=== PATIENT | male | born 1950 | race Caucasian/White ===

== ENCOUNTER → 2017-03-23 | Outpatient (CLI) | payer OTHER | LOC: OD 08:12 | PROVIDERS: ATTEND Internal Medicine | DX: Z53.9 Procedure and treatment not carried out, unspecified reason (principal) ==

== ENCOUNTER → 2017-03-27 | Outpatient (CLI) | payer OTHER ==
[2017-03-27 08:21] LABS: ABSOLUTE BASOPHILS # (AUTO) 0.1 10^3/uL (0.0-0.2); ABSOLUTE EOSINOPHILS # (AUTO) 0.2 10^3/uL (0.0-0.6); ABSOLUTE LYMPHOCYTES (AUTO) 1.8 10^3/uL (0.5-4.7); ABSOLUTE MONOCYTES (AUTO) 0.6 10^3/uL (0.1-1.4); ABSOLUTE NEUT (AUTO) 3.1 10^3/uL (1.7-8.2); BASOPHILS % (AUTO) 1.4 % (0-2); EOSINOPHILS % (AUTO) 3.7 % (0-6); HEMATOCRIT 45.9 % (37.9-51.0); HEMOGLOBIN 15.1 g/dL (13.5-17.0); HGB HCT DIFFERENCE -0.6; MEAN CORPUSCULAR HEMOGLOBIN 30.2 pg (27.0-33.4); MEAN CORPUSCULAR VOLUME 92 fl (80-97); MONOCYTES % (AUTO) 9.8 % (3-13); SEGMENTED NEUTROPHILS % (AUTO) 53.1 % (42-78); WHITE BLOOD COUNT 5.8 10^3/uL (4.0-10.5)
[2017-03-27 08:49] LABS: ALANINE AMINOTRANSFERASE 29 U/L (21-72); ALKALINE PHOSPHATASE 43 U/L (38-126); ANION GAP 11 (5-19); ASPARTATE AMINO TRANSFERASE 27 U/L (17-59); BILIRUBIN,DIRECT 0.2 mg/dL (0.0-0.4); BILIRUBIN,TOTAL 0.8 mg/dL (0.2-1.3); BLOOD UREA NITROGEN 16 mg/dL (7-20); CALCIUM 8.9 mg/dL (8.4-10.2); CARBON DIOXIDE 24 mmol/L (22-30); CHLORIDE 105 mmol/L (98-107); CHOLESTEROL 185.62 mg/dL (0-200); CREATININE RESULT 0.99 mg/dL (0.52-1.25); Direct HDL 42 mg/dL (>40); GLUCOSE 94 mg/dL (75-110); POTASSIUM 4.6 mmol/L (3.6-5.0); SODIUM 140.2 mmol/L (137-145); TOTAL PROTEIN 6.5 g/dL (6.3-8.2); TRIGLYCERIDES 98 mg/dL (<150)
[2017-03-27 09:01] LABS: DIRECT LDL 117 mg/dL (<100)
== END ==
LOC: OD 07:45
PROVIDERS: ATTEND Internal Medicine
DX: Z00.00 Encounter for general adult medical examination without abnormal findings (principal); E78.5 Hyperlipidemia, unspecified; N40.0 Benign prostatic hyperplasia without lower urinary tract symptoms; R35.1 Nocturia
CPT/HCPCS: 36415; 80053; 80061; 84153; 84443; 85025

== ENCOUNTER → 2017-11-27 | Outpatient (CLI) | payer OTHER ==
--- NOTE | 2017-11-27 11:16 | RADIOLOGY REPORT (SQ) ---
EXAM DESCRIPTION: CT CHEST WITHOUT COMPLETED DATE/TIME: 11/27/2017 10:07 am REASON FOR STUDY: R91.1 SOLITARY PULMONARY NODULE R91.1 SOLITARY PULMONARY NODULE COMPARISON: 07/24/2017 TECHNIQUE: CT scan performed of the chest without intravenous contrast. Images reviewed with lung, soft tissue and bone windows. Reconstructed coronal and sagittal MPR images reviewed. All images st ored on PACS. All CT scanners at this facility use dose modulation, iterative reconstruction, and/or weight based d osing when appropriate to reduce radiation dose to as low as reasonably achievable (ALARA). [facility]: Dose Right [facility]: CareDose [facility]: Dose Right [facility]: Teradose 4D [facility]: [employer] RADIATION DOSE: CT Rad equipment meets quality standard of care and radiation dose reduction techniq ues were employed. CTDIvol: 16.5 mGy. DLP: 591 mGy-cm. mGy. LIMITATIONS: No technical limitations. FINDINGS: LUNGS AND PLEURA: Stable small perifissural nodules. Linear subsegmental atelectasis or scar in the left lingula, stable finding. No pneumothorax or pleural effusion. The central airways are clear. HILAR AND MEDIASTINAL STRUCTURES: No significant interval changes. HEART AND VASCULAR STRUCTURES: Stable tortuosity and ectasia of the thoracic aorta. No aneurysm. N o pericardial effusion. UPPER ABDOMEN: Small calcified granuloma in the liver and spleen, probably secondary to prior granul omatous disease, unchanged findings. Left renal cyst. Limited exam. THYROID AND OTHER SOFT TISSUES: No masses. No adenopathy. BONES: The osseous structures are stable in appearance. HARDWARE: None in the chest. OTHER: No other significant findings. IMPRESSION: 1 No significant interval changes since the prior examination dated 07/24/2017. Stable l inear subsegmental atelectasis or scar in the left lingula. 2. Stable small perifissural nodules. TECHNICAL DOCUMENTATION: JOB ID: [id number] Quality ID # [id number]: Final reports with documentation of one or more dose reduction techniques (e.g., Au tomated exposure control, adjustment of the mA and/or kV according to patient size, use of iterative reconstruction technique) 2010 [employer]- All Rights Reserved Reading location - IP/workstation name: [email or web address]
== END ==
LOC: RAD 10:19
PROVIDERS: ATTEND Internal Medicine Pulmonary Disease
DX: R91.1 Solitary pulmonary nodule (principal)
CPT/HCPCS: 71250

== ENCOUNTER → 2018-09-21 | Outpatient (CLI) | payer OTHER ==
--- NOTE | 2018-09-21 11:30 | RADIOLOGY REPORT (SQ) ---
EXAM DESCRIPTION: CHEST PA/LATERAL COMPLETED DATE/TIME: 09/21/2018 10:54 am REASON FOR STUDY: COUGH COMPARISON: None. EXAM PARAMETERS: NUMBER OF VIEWS: two views TECHNIQUE: Digital Frontal and Lateral radiographic views of the chest acquired. RADIATION DOSE: NA LIMITATIONS: none FINDINGS: LUNGS AND PLEURA: Stable linear left basilar scarring. No new airspace disease, masses or pneumothorax. No pleural effusion. MEDIASTINUM AND HILAR STRUCTURES: No masses or contour abnormalities. HEART AND VASCULAR STRUCTURES: Heart normal size. No evidence for failure. BONES: No acute findings. HARDWARE: None in the chest. OTHER: No other significant finding. IMPRESSION: No evidence of acute cardiopulmonary process. TECHNICAL DOCUMENTATION: JOB ID: [id number] [employer]- All Rights Reserved Reading location - IP/workstation name: [email or web address]
== END ==
LOC: OD 10:17
PROVIDERS: ATTEND Internal Medicine Pulmonary Disease
DX: R05 Cough (principal)
CPT/HCPCS: 71046

== ENCOUNTER → 2019-10-17 | Outpatient (CLI) | payer OTHER ==
--- NOTE | 2019-10-17 11:38 | RADIOLOGY REPORT (SQ) ---
EXAM DESCRIPTION: CT CHEST WITHOUT COMPLETED DATE/TIME: 10/17/2019 8:52 am REASON FOR STUDY: PULMONARY NODULE (R91.1) R91.1 SOLITARY PULMONARY NODULE COMPARISON: 11/27/2017. 2017. TECHNIQUE: CT scan performed of the chest without intravenous contrast. Images reviewed with lung, soft tissue and bone windows. Reconstructed coronal and sagittal MPR images reviewed. All images st ored on PACS. All CT scanners at this facility use dose modulation, iterative reconstruction, and/or weight based d osing when appropriate to reduce radiation dose to as low as reasonably achievable (ALARA). [facility]: Dose Right [facility]: CareDose [facility]: Dose Right [facility]: Teradose 4D [facility]: Smart [employer] RADIATION DOSE: CT Rad equipment meets quality standard of care and radiation dose reduction techniq ues were employed. CTDIvol: 15.4 mGy. DLP: 577 mGy-cm. mGy. LIMITATIONS: No technical limitations. FINDINGS: LUNGS AND PLEURA: No significant nodules or masses noted on today's study. Clear lungs. HILAR AND MEDIASTINAL STRUCTURES: No identified masses or abnormal nodes. No obvious aneurysm. HEART AND VASCULAR STRUCTURES: No pericardial effusion. Mild coronary calcification. Slight ectasia of the descending aorta 3.4 cm, stable. UPPER ABDOMEN: No significant findings. Limited exam. THYROID AND OTHER SOFT TISSUES: No masses. No adenopathy. BONES: No significant finding. HARDWARE: None in the chest. OTHER: No other significant findings. IMPRESSION: NO SIGNIFICANT FINDING ON NON-CONTRASTED CHEST CT. TECHNICAL DOCUMENTATION: JOB ID: [id number] Quality ID # [id number]: Final reports with documentation of one or more dose reduction techniques (e.g., Au tomated exposure control, adjustment of the mA and/or kV according to patient size, use of iterative reconstruction technique) 2010 [employer]- All Rights Reserved Reading location - IP/workstation name: [email or web address]
== END ==
LOC: RAD 08:39
PROVIDERS: ATTEND Internal Medicine Pulmonary Disease
DX: R91.1 Solitary pulmonary nodule (principal)
CPT/HCPCS: 71250

== ENCOUNTER 2020-09-15 19:16 | Emergency (ER) | payer OTHER ==
--- NOTE | 2020-09-15 19:43 | ER Document Report ---
ED Medical Screen (RME) - General Chief Complaint: Fever Stated Complaint: FEVER/TESTED POS COVID Time Seen by Provider: 09/15/20 19:38 Primary Care Provider: KD MAYA MD [Primary Care Provider] - Follow up as needed Mode of Arrival: Ambulatory Information source: Patient Notes: HPI; 70-year-old male presents to the emergency room complaining of fevers of 102 that started today. States that he tested positive for Covid on September 10. Fevers did not start till today. Also complaining of general body aches and a cough. Took Tylenol with minimal relief. Denies any chest pain, shortness of breath no difficulty breathing. PE: Alert and oriented x3. Lungs scattered rhonchi no wheezes no rales. Heart: Tachycardic without murmurs, rubs, gallops. I have greeted and performed a rapid initial assessment of this patient. A comprehensive ED assessment and evaluation of the patient, analysis of test results and completion of the medical decision making process will be conducted by additional ED providers. I have specifically instructed the patient or family members with the patient to immediately return to any nursing staff should anything change in the patient's condition or with their chief complaint. TRAVEL OUTSIDE OF THE [place] IN LAST 30 DAYS: No Physical Exam - Vital signs Vitals: Temp Pulse Resp BP Pulse Ox 99.2 F 99 16 113/63 98 09/15/20 19:37 09/15/20 19:37 09/15/20 19:37 09/15/20 19:37 09/15/20 19:37 Course - Vital Signs Vital signs: Temp Pulse Resp BP Pulse Ox 99.2 F 99 16 113/63 98 09/15/20 19:37 09/15/20 19:37 09/15/20 19:37 09/15/20 19:37 09/15/20 19:37 Doctor's Discharge - Discharge Referrals: KD MAYA MD [Primary Care Provider] - Follow up as needed
--- NOTE | 2020-09-15 20:49 | RADIOLOGY REPORT (SQ) ---
EXAM DESCRIPTION: XR CHEST 2 VIEWS COMPLETED DATE/TME: 09/15/2020 20:20 CLINICAL HISTORY: 70 years, Male, cough COMPARISON: CT chest a 10/17/2019 TECHNIQUE: AP and lateral views. FINDINGS: Cardiomediastinal silhouette without acute enlargement. Chronic mild elevation of left hemidiaphragm. Patchy groundglass opacities in left mid and lower lung hogan. Question minimal in the right lung. IMPRESSION: Subtle infiltrates in both lungs more on the left. Rule out viral pneumonia.
[2020-09-15 22:24] LABS: ABSOLUTE LYMPHOCYTES (AUTO) 0.8 10^3/uL (0.5-4.7); ABSOLUTE MONOCYTES (AUTO) 0.7 10^3/uL (0.1-1.4); ABSOLUTE NEUT (AUTO) 8.7 10^3/uL (1.7-8.2); BASOPHILS % (AUTO) 0.2 % (0-2); EOSINOPHILS % (AUTO) 0.2 % (0-6); HEMATOCRIT 40.9 % (37.9-51.0); HEMOGLOBIN 14.4 g/dL (13.5-17.0); LYMPHOCYTES % (AUTO) 7.5 % (13-45); MEAN CORPUSCULAR HEMOGLOBIN 30.9 pg (27.0-33.4); MEAN CORPUSCULAR HGB CONC 35.3 g/dL (32.0-36.0); MEAN CORPUSCULAR VOLUME 88 fl (80-97); MONOCYTES % (AUTO) 6.9 % (3-13); PLATELET COUNT 248 10^3/uL (150-450); RED BLOOD COUNT 4.67 10^6/uL (4.35-5.55); RED CELL DISTRIBUTION WIDTH 12.6 % (11.5-14.0); SEGMENTED NEUTROPHILS % (AUTO) 85.2 % (42-78); TOTAL CELLS COUNTED % (AUTO) 100 %; WHITE BLOOD COUNT 10.2 10^3/uL (4.0-10.5)
--- NOTE | 2020-09-15 22:37 | ER Document Report ---
ED General - General Chief Complaint: Fever Stated Complaint: FEVER/TESTED POS COVID Time Seen by Provider: 09/15/20 19:38 Primary Care Provider: KD MAYA MD [ACTIVE STAFF] - Follow up as needed Mode of Arrival: Ambulatory TRAVEL OUTSIDE OF THE [place] IN LAST 30 DAYS: No - HPI Notes: 70-year-old male presents to the emergency department for evaluation, he is known to be Covid positive. Patient states that he was having symptoms for about the past week, he tested positive on 09/10. He states that he is actually been doing okay, however today he has become febrile, T-max 102.9 at home. He also states he has had a little bit of shortness of breath today. Cough intermittently productive of phlegm. Patient states that he has a tendency to develop bronchitis, he has a "patch/spot" on his lungs which is followed every 2 to 3 years. He denies chest pain. He notes some decreased appetite, denies N/V/D or abdominal pain. - Related Data Allergies/Adverse Reactions: No Known Allergies Allergy (Unverified 09/16/20 01:07) Past Medical History - General Information source: Patient - Social History Smoking Status: Unknown if Ever Smoked Family History: Reviewed & Not Pertinent Review of Systems - Review of Systems Constitutional: Fever EENT: No symptoms reported Cardiovascular: denies: Chest pain Respiratory: See HPI Gastrointestinal: No symptoms reported Genitourinary: No symptoms reported Male Genitourinary: No symptoms reported Musculoskeletal: No symptoms reported Skin: No symptoms reported Hematologic/Lymphatic: No symptoms reported Neurological/Psychological: No symptoms reported Physical Exam - Vital signs Vitals: Temp Pulse Resp BP Pulse Ox 99.2 F 99 16 113/63 98 09/15/20 19:37 09/15/20 19:37 09/15/20 19:37 09/15/20 19:37 09/15/20 19:37 - General General appearance: Appears well, Alert In distress: None - HEENT Head: Normocephalic, Atraumatic Extraocular movements intact: Yes Pupils: PERRL - Respiratory Respiratory status: No respiratory distress. No: Labored, Tachypnea Breath sounds: Rhonchi - Faint at bases - Cardiovascular Rhythm: Regular Heart sounds: Normal auscultation - Abdominal Tenderness: Nontender - Extremities General upper extremity: Normal ROM General lower extremity: Normal ROM. No: Edema - Neurological Neuro grossly intact: Yes Cognition: Normal Orientation: AAOx4 - Psychological Associated symptoms: Normal affect - Skin Skin Temperature: Warm Course - Re-evaluation Re-evalutation: 70-year-old male +Covid here with fever and a mild shortness of breath today. On exam patient is alert, very well-appearing, afebrile, not hypoxic on room air. Breath sounds are overall good, has some very faint rhonchi at the bases. Physical exam otherwise unremarkable. We will start symptomatic control with Decadron given his underlying lung issues and dose of Pepcid and azithromycin. Laboratory evaluation has been ordered through triage process. 09/16/20 00:20 No leukocytosis, no acute anemia. Mild lymphocytosis, correlates with known Covid infection. Slight hyponatremia at 132, normal saline given. Electrolytes otherwise within normal limits. Creatinine within normal limits. No elevation of LFTs. CRP elevated as expected. Chest x-ray with subtle bilateral infiltrates consistent with Covid. 09/16/20 01:24 Patient reports he is still feeling well. He has had known episodes of hypoxia while in the emergency department. I discussed continued symptomatic care at home. Prescribe azithromycin and Decadron. He has a home pulse ox. Return precautions discussed, stable time discharge. - Vital Signs Vital signs: Temp Pulse Resp BP Pulse Ox 98.8 F 84 18 100/65 96 09/16/20 01:48 09/16/20 01:48 09/16/20 01:48 09/16/20 01:48 09/16/20 01:48 - Laboratory Results Result Diagrams: 09/15/20 21:45 09/15/20 21:45 Laboratory Results Interpreted: 09/15/20 09/15/20 09/15/20 21:45 21:45 21:45 Lymph % (Auto) 7.5 L Absolute Neuts (auto) 8.7 H Seg Neutrophils % 85.2 H Sodium 131.9 L Calcium 8.3 L C-Reactive Protein 176.3 H Critical Laboratory Results Reviewed: No Critical Results - Radiology Results Critical Radiology Results Reviewed: No Critical Results Discharge - Discharge Clinical Impression: COVID-19 virus infection Disposition: HOME, SELF-CARE Additional Instructions: Please begin course of Decadron and azithromycin. Please continue use of vitamin C and vitamin D supplementation. Would advise to begin a daily aspirin as well. Can continue use of guaifenesin which is available [id number]. Please follow-up with your primary care doctor, or talk about a telehealth visit. Return to the emergency department for any concerning worsening symptoms. Prescriptions: Dexamethasone [Decadron] 6 mg PO DAILY 7 Days #7 tablet Azithromycin [Zithromax 250 mg Tablet] 250 mg PO ASDIR PRN #6 tablet PRN Reason: Referrals: KD MAYA MD [ACTIVE STAFF] - Follow up as needed
[2020-09-15 22:42] LABS: ALBUMIN 3.5 g/dL (3.5-5.0); ALKALINE PHOSPHATASE 43 U/L (38-126); ANION GAP 9 (5-19); ASPARTATE AMINO TRANSFERASE 29 U/L (17-59); BILIRUBIN,DIRECT 0.3 mg/dL (0.0-0.4); BILIRUBIN,TOTAL 0.8 mg/dL (0.2-1.3); BLOOD UREA NITROGEN 16 mg/dL (7-20); CALCIUM 8.3 mg/dL (8.4-10.2); CARBON DIOXIDE 23 mmol/L (22-30); CHLORIDE 100 mmol/L (98-107); GLUCOSE 98 mg/dL (75-110); POTASSIUM 4.1 mmol/L (3.6-5.0); TOTAL PROTEIN 6.6 g/dL (6.3-8.2)
[2020-09-15] MEDS ORDERED: GUAIFENESIN 600 MG TABLET.SA PO ONE (22:48)
[2020-09-15] MEDS ORDERED: DEXAMETHASONE SOD PHOSPHATE INJ 4 MG/1 ML VIAL IV ONE (22:48)
[2020-09-15] MEDS ORDERED: AZITHROMYCIN INJ 500 MG VIAL IV ONE (22:48)
[2020-09-15] MEDS ORDERED: FAMOTIDINE INJ/PF 20 MG/2 ML SDV IV ONE (22:49)
[2020-09-15] MEDS ORDERED: NORMAL SALINE 500 ML IV ONE (23:33)
[2020-09-16 01:54] VITALS: BP 100/65
== END 2020-09-16 01:54 | disposition home or self-care (01) ==
LOC: ER 19:16
DX: U07.1 COVID-19 (principal); E87.1 Hypo-osmolality and hyponatremia; R09.02 Hypoxemia
CPT/HCPCS: 99284; 96375; 96365; 36415; 87040; 83605; 85025; 86140; 80053; 71046; J1100; J7040; J0456; S0028